=== PATIENT | male | born 1940 | race Caucasian/White ===

== ENCOUNTER 2017-06-09 09:39 | Inpatient (IN) | payer MEDICARE ==
[2017-06-09 11:10] LABS: Hematocrit 43.3 % (35.5-45.6); Hemoglobin 14.6 gm/dl (11.8-15.2); Mean Corpuscular HGB Conc 34 % (32-34); Mean Corpuscular Hemoglobin 31 pg (28-32); Mean Corpuscular Volume 91 fl (84-94); Platelet Count 123 K/mm3 (140-440); Red Blood Count 4.76 M/mm3 (3.65-5.03); Red Cell Distribution Width 13.8 % (13.2-15.2)
--- NOTE | 2017-06-09 11:17 | Cat Scan Report ---
CT HEAD WITHOUT CONTRAST: 06/09/17 09:39:00 CLINICAL: Stroke. TECHNIQUE: 2.5-mm noncontrast scans. COMPARISON:04/18/11 FINDINGS: The ventricles and sulci are large for age. Large areas of encephalomalacia in the left occipital lobe, right temporal lobe and posterior right parietal lobe. Left basal ganglia chronic lacunar infarcts. Left occipital lobe encephalomalacia is unchanged compared to the prior exam. Chronic infarcts of the left basal ganglia and right temporal lobe and right posterior parietal lobe are new compared to the last exam. Bilateral periventricular white matter hypodensities are more pronounced than on the prior exam. No suspicious focal hypodensity. No mass or mass effect. No hemorrhage, edema or extra-axial collection. Bilateral ethmoid and maxillary sinusitis with air-fluid levels in the maxillary sinuses. Normal orbits and soft tissues. The calvarium and skull base are intact. IMPRESSION: 1. No evidence of acute/subacute infarct or hemorrhage. 2. Chronic infarcts of the right temporal lobe, right posterior parietal lobe and left basal ganglia are new compared to the previous exam. 3. Stable chronic left occipital lobe infarct. 4. Chronic white matter microangiopathy. 5. Bilateral ethmoid and maxillary sinusitis..
[2017-06-09 11:20] LABS: INR 2.41 (0.87-1.13)
[2017-06-09 11:26] LABS: BUN/Creatinine Ratio 16; Blood Urea Nitrogen 22 mg/dL (9-20); Calcium 8.5 mg/dL (8.4-10.2); Hemolysis Index 6
[2017-06-09 11:27] LABS: Partial Thromboplastin Time 61.8 Sec. (24.2-36.6)
--- NOTE | 2017-06-09 11:32 | XRay Report ---
AP CHEST : 06/09/17 09:39:00 CLINICAL: Syncope. COMPARISON:04/18/11 FINDINGS: Normal heart and pulmonary vessels.Aortic calcification and tortuosity. The lungs are normally expanded and clear. The bones and soft tissues are unremarkable. IMPRESSION: No acute cardiopulmonary process.
--- NOTE | 2017-06-09 11:58 | Emergency Department Report ---
ED Syncope HPI - General Chief Complaint: Syncope Stated Complaint: PASS OUT Time Seen by Provider: 06/09/17 10:59 Source: patient Exam Limitations: no limitations - History of Present Illness Initial Comments: 76-year-old male with a past medical history CVA and chronic atrial fibrillation presents also complains of near syncopal episode today and syncopal episode yesterday. Patient was in sikhism today, tried to stand but was too weak to do so and became pale and weak. Patient obtain a shortness of breath just during that episode but otherwise denies shortness of breath, headache, chest pain, bowel pain, nausea, vomiting, diarrhea, melena, or hematochezia. Positive intermittent cough but denies any fevers. 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 - Related Data Allergies/Adverse Reactions: Allergies No Known Allergies Allergy (Verified 06/09/17 10:23) ED Review of Systems ROS: Stated complaint: PASS OUT Other details as noted in HPI Comment: All other systems reviewed and negative Other: Constitutional: No fevers chills Eyes: No eye pain visual changes ENT: No ear pain or throat pain Neck: Denies pain Respiratory: As per HPI Cardiovascular: Denies chest pain, palpitations GI: Denies abdominal pain, nausea, vomiting, diarrhea : Denies dysuria Musculoskeletal: Denies back pain Skin: Denies rash, lesions, erythema Neurologic: Denies headache, numbness, focal weakness Psychiatric: Denies suicidal ideation, hallucinations ED Past Medical Hx - Past Medical History Previous Medical History?: Yes Hx CVA: Yes (2stroke episodes,one 2 years ago,one 6 years ago; one eye stroke) Additional medical history: Hx A-fib. - Surgical History Past Surgical History?: No - Social History Smoking Status: Never Smoker Substance Use Type: None ED Physical Exam - General Limitations: No Limitations - Other Other exam information: General: No limitations, patient is alert in no acute distress Head exam: Atraumatic, normocephalic Eyes exam: Normal appearance ENT: Moist mucous membrane, normal oropharynx Neck exam: Normal inspection, full range of motion, no meningismus nontender Respiratory exam: Clear to auscultation bilateral, no wheezes, rales, crackles Cardiovascular: Normal rate and rhythm, normal heart sounds Abdomen: Soft, nondistended, and nontender, with normal bowel sounds, no rebound, or guarding Extremity: Full range of motion normal inspection no deformity Back: Normal Inspection, full range of motion, no tenderness Neurologic: Alert, oriented x3, cranial nerves intact, no motor or sensory deficit Psychiatric: normal affect, normal mood Skin: Warm, dry, intact ED Course Vital Signs 06/09/17 06/09/17 06/09/17 10:02 10:07 10:15 Temperature 98.8 F Pulse Rate 99 H 116 H Respiratory 13 14 15 Rate Blood Pressure 115/72 122/78 Blood Pressure 115/72 [Left] O2 Sat by Pulse 99 97 97 Oximetry 06/09/17 06/09/17 10:30 10:45 Temperature Pulse Rate 94 H 92 H Respiratory 15 13 Rate Blood Pressure 131/85 138/98 Blood Pressure [Left] O2 Sat by Pulse 99 98 Oximetry - Reevaluation(s) Reevaluation #1: 06/09/17 12:07 Patient remains asymptomatic in ED ED Medical Decision Making - Lab Data Result diagrams: 06/09/17 10:38 06/09/17 10:38 Lab Results 06/09/17 06/09/17 06/09/17 Range/Units 10:38 10:38 10:38 WBC 3.8 L (4.5-11.0) K/mm3 RBC 4.76 (3.65-5.03) M/mm3 Hgb 14.6 (11.8-15.2) gm/dl Hct 43.3 (35.5-45.6) % MCV 91 (84-94) fl MCH 31 (28-32) pg MCHC 34 (32-34) % RDW 13.8 (13.2-15.2) % Plt Count 123 L (140-440) K/mm3 [place] % (Auto) Supervisor Advice Add Manual Diff Complete Total Counted 100 Seg Neuts % (Manual) 67.0 (40.0-70.0) % Band Neutrophils % 5.0 % Lymphocytes % (Manual) 17.0 (13.4-35.0) % Reactive Lymphs % (Man) 0 % Monocytes % (Manual) 11.0 H (0.0-7.3) % Eosinophils % (Manual) 0 (0.0-4.3) % Basophils % (Manual) 0 (0.0-1.8) % Metamyelocytes % 0 % Myelocytes % 0 % Promyelocytes % 0 % Blast Cells % 0 % Nucleated RBC % Not Reportable Seg Neutrophils # Man 2.5 (1.8-7.7) K/mm3 Band Neutrophils # 0.2 K/mm3 Lymphocytes # (Manual) 0.6 L (1.2-5.4) K/mm3 Abs React Lymphs (Man) 0.0 K/mm3 Monocytes # (Manual) 0.4 (0.0-0.8) K/mm3 Eosinophils # (Manual) 0.0 (0.0-0.4) K/mm3 Basophils # (Manual) 0.0 (0.0-0.1) K/mm3 Metamyelocytes # 0.0 K/mm3 Myelocytes # 0.0 K/mm3 Promyelocytes # 0.0 K/mm3 Blast Cells # 0.0 K/mm3 WBC Morphology Not Reportable Hypersegmented Neuts Not Reportable Hyposegmented Neuts Not Reportable Hypogranular Neuts Not Reportable Smudge Cells Not Reportable Toxic Granulation Not Reportable Toxic Vacuolation Not Reportable Dohle Bodies Not Reportable Pelger-Huet Anomaly Not Reportable Richard Rods Not Reportable Platelet Estimate Consistent w auto Clumped Platelets Not Reportable Plt Clumps, EDTA Not Reportable Large Platelets Not Reportable Giant Platelets Not Reportable Platelet Satelliting Not Reportable Plt Morphology Comment Not Reportable RBC Morphology Normal Dimorphic RBCs Not Reportable Polychromasia Not Reportable Hypochromasia Not Reportable Poikilocytosis Not Reportable Anisocytosis Not Reportable Microcytosis Not Reportable Macrocytosis Not Reportable Spherocytes Not Reportable Pappenheimer Bodies Not Reportable Sickle Cells Not Reportable Target Cells Not Reportable Tear Drop Cells Not Reportable Ovalocytes Not Reportable Helmet Cells Not Reportable [place] Bodies Not Reportable [place] Rings Not Reportable [place] Cells Not Reportable Bite Cells Not Reportable Crenated Cell Not Reportable Elliptocytes Not Reportable Acanthocytes (Spur) Not Reportable Rouleaux Not Reportable Hemoglobin C Crystals Not Reportable Schistocytes Not Reportable Malaria parasites Not Reportable Obed Bodies Not Reportable Hem Pathologist Commnt No PT 27.7 H (12.2-14.9) Sec. INR 2.41 H (0.87-1.13) APTT 61.8 H* (24.2-36.6) Sec. Thrombin Time (15.1-19.6) Sec. Sodium 138 (137-145) mmol/L Potassium 4.4 (3.6-5.0) mmol/L Chloride 98.2 (98-107) mmol/L Carbon Dioxide 26 (22-30) mmol/L Anion Gap 18 mmol/L BUN 22 H (9-20) mg/dL Creatinine 1.4 (0.8-1.5) mg/dL Estimated GFR 50 ml/min BUN/Creatinine Ratio 16 % Glucose 106 H (75-100) mg/dL Calcium 8.5 (8.4-10.2) mg/dL Troponin T < 0.010 (0.00-0.029) ng/mL 06/09/17 Range/Units 10:38 WBC (4.5-11.0) K/mm3 RBC (3.65-5.03) M/mm3 Hgb (11.8-15.2) gm/dl Hct (35.5-45.6) % MCV (84-94) fl MCH (28-32) pg MCHC (32-34) % RDW (13.2-15.2) % Plt Count (140-440) K/mm3 [place] % (Auto) Add Manual Diff Total Counted Seg Neuts % (Manual) (40.0-70.0) % Band Neutrophils % % Lymphocytes % (Manual) (13.4-35.0) % Reactive Lymphs % (Man) % Monocytes % (Manual) (0.0-7.3) % Eosinophils % (Manual) (0.0-4.3) % Basophils % (Manual) (0.0-1.8) % Metamyelocytes % % Myelocytes % % Promyelocytes % % Blast Cells % % Nucleated RBC % Seg Neutrophils # Man (1.8-7.7) K/mm3 Band Neutrophils # K/mm3 Lymphocytes # (Manual) (1.2-5.4) K/mm3 Abs React Lymphs (Man) K/mm3 Monocytes # (Manual) (0.0-0.8) K/mm3 Eosinophils # (Manual) (0.0-0.4) K/mm3 Basophils # (Manual) (0.0-0.1) K/mm3 Metamyelocytes # K/mm3 Myelocytes # K/mm3 Promyelocytes # K/mm3 Blast Cells # K/mm3 WBC Morphology Hypersegmented Neuts Hyposegmented Neuts Hypogranular Neuts Smudge Cells Toxic Granulation Toxic Vacuolation Dohle Bodies Pelger-Huet Anomaly Richard Rods Platelet Estimate Clumped Platelets Plt Clumps, EDTA Large Platelets Giant Platelets Platelet Satelliting Plt Morphology Comment RBC Morphology Dimorphic RBCs Polychromasia Hypochromasia Poikilocytosis Anisocytosis Microcytosis Macrocytosis Spherocytes Pappenheimer Bodies Sickle Cells Target Cells Tear Drop Cells Ovalocytes Helmet Cells [place] Bodies [place] Rings [place] Cells Bite Cells Crenated Cell Elliptocytes Acanthocytes (Spur) Rouleaux Hemoglobin C Crystals Schistocytes Malaria parasites Obed Bodies Hem Pathologist Commnt PT (12.2-14.9) Sec. INR (0.87-1.13) APTT (24.2-36.6) Sec. Thrombin Time 16.9 (15.1-19.6) Sec. Sodium (137-145) mmol/L Potassium (3.6-5.0) mmol/L Chloride (98-107) mmol/L Carbon Dioxide (22-30) mmol/L Anion Gap mmol/L BUN (9-20) mg/dL Creatinine (0.8-1.5) mg/dL Estimated GFR ml/min BUN/Creatinine Ratio % Glucose (75-100) mg/dL Calcium (8.4-10.2) mg/dL Troponin T (0.00-0.029) ng/mL - EKG Data -: EKG Interpreted by Me (afib) EKG shows normal: axis (52), QRS complexes (83), ST-T waves (no stemi/ t inv) Rate: normal (94) - EKG Data When compared to previous EKG there are: previous EKG unavailable - Radiology Data Radiology results: report reviewed Chest x-ray: No acute findings CT head: No acute or subacute infarcts or hemorrhage. See report for chronic infarct findings and bilateral ethmoid and maxillary sinusiti - Medical Decision Making Syncope Labs and imaging studies unremarkable. Pt istherapeutic on Coumadin Chronic A. fib noted Patient be made to the hospital further evaluation - Differential Diagnosis CVA, arrhythmia, anemia, vasovagal, dehydration, [place] Critical Care Time: No Critical care attestation.: If time is entered above; I have spent that time in minutes in the direct care of this critically ill patient, excluding procedure time. ED Disposition Clinical Impression: Syncope, Chronic a-fib, Anticoagulated on Coumadin, Thrombocytopenia, Sinusitis Disposition: OP ADMIT IP TO THIS HOSP Is pt being admited?: Yes Condition: Stable Time of Disposition: 11:58 (Dr Oakes/hosp)
[2017-06-09 11:59] LABS: Band Neutrophils # (Manual) 0.2 K/mm3; Basophils % (Manual) 0 % (0.0-1.8); Eosinophils % (Manual) 0 % (0.0-4.3); Platelet Estimate Consistent w Auto; RBC Morphology Normal; Total Cells Counted 100
[2017-06-09 12:30] LABS: Creatine Kinase MB 1.2 ng/mL (0.0-4.0)
[2017-06-09 13:14] LABS: Bacteria,Urine 1+ /HPF (Negative); Bilirubin,Urine NEG (Negative); Blood,Urine NEG (Negative); Color,Urine Yellow (Yellow); Hyaline Casts,Urine 31 /LPF; Mucus,Urine 1+ /HPF; Nitrite,Urine NEG (Negative); Urobilinogen,Urine < 2.0 mg/dL (<2.0)
--- NOTE | 2017-06-10 06:22 | Event Note ---
Date: 06/09/17 See dictated H/p in reports Syncope and Collapse CVA in past
[2017-06-10] MEDS ORDERED: TYLENOL PO PRN (06:29)
[2017-06-10] MEDS ORDERED: DULCOLAX PR PRN (06:29)
[2017-06-10] MEDS ORDERED: ZOFRAN IV PRN (06:29)
[2017-06-10] MEDS ORDERED: PERCOCET 5/325 PO PRN (06:29)
[2017-06-10] MEDS ORDERED: MILK OF MAGNESIA PO PRN (06:29)
[2017-06-10] MEDS ORDERED: MORPHINE IV PRN (06:29)
[2017-06-10] MEDS ORDERED: D5NS 1,000 ML IV SCH (07:00)
--- NOTE | 2017-06-10 07:26 | History and Physical Report ---
CHIEF COMPLAINT: Passed out last night. HISTORY OF PRESENT ILLNESS: A 76-year-old male with history of CVA and chronic atrial fibrillation, comes in for syncope yesterday. The patient was having chest tightness and felt weak and became pale and passed out. Shortness of breath during the episode. The headache and chest, but denies any chest pain, headache, nausea, or vomiting. Some cough present. Because the patient did not want to come yesterday, he came this morning for checkup. The patient is otherwise doing well. No fever, no chills. No recent travel. PAST MEDICAL HISTORY: Significant for history of CVA and atrial fibrillation. PAST SURGICAL HISTORY: None. SOCIAL HISTORY: Does not smoke. No alcohol, no recreational drugs. FAMILY HISTORY: No hypertension, no diabetes. REVIEW OF SYSTEMS: Significant for syncope. Otherwise, 14-point review of systems negative. A 14-point review of systems done. PHYSICAL EXAMINATION: GENERAL: Elderly male, lying in bed comfortably. VITAL SIGNS: Blood pressure is 150/83 and 148/89. Not orthostatic. Temperature is 98.8, pulse is 80, respirations 18. HEENT: Unremarkable. Pupils are equal and reactive. NECK: Supple, no lymphadenopathy, no thyromegaly. LUNGS: Clear to auscultation and percussion. Good air entry. CARDIOVASCULAR: S1, S2 heard. No gallop, no murmur, no rub. Apical impulse in the left fifth intercostal space and midclavicular line. ABDOMEN: Soft and benign. No hepatosplenomegaly. No guarding, no rigidity. Hernial orifices are normal. EXTREMITIES: Good pedal pulses. No pedal edema. LABORATORY DATA: Significant for white count of 3800, hemoglobin of 14.6 and hematocrit of 43.3, platelet count of 123,000. Electrolytes are normal. BUN is 22, creatinine is 1.4, slightly high. Urine is negative. Sodium is 138, potassium is 4.4. DIAGNOSTIC DATA: EKG shows nonspecific ST-T wave changes. Normal QRS complexes. Heart rate of 94. CT head, no acute findings. Chest x-ray, no acute findings. ASSESSMENT AND PLAN: 1. Syncope. Syncope workup. 2. Chronic atrial fibrillation. The patient on Coumadin. Syncope workup: The patient to get carotid duplex scan, Lexiscan scan and echocardiogram. If Lexiscan is negative, the patient will be discharged on 06/10/2017. Deep venous thrombosis prophylaxis, the patient on Coumadin. JOB# [id number] LAVERN/JESSIE
[2017-06-10 07:31] LABS: Hematocrit 40.4 % (35.5-45.6); Hemoglobin 13.6 gm/dl (11.8-15.2); Mean Corpuscular HGB Conc 34 % (32-34); Mean Corpuscular Hemoglobin 30 pg (28-32); Mean Corpuscular Volume 90 fl (84-94); Platelet Count 119 K/mm3 (140-440); Red Blood Count 4.49 M/mm3 (3.65-5.03)
[2017-06-10 07:51] LABS: Alanine Aminotransferase 14 units/L (7-56); Albumin 3.5 g/dL (3.9-5); BUN/Creatinine Ratio 16; Blood Urea Nitrogen 16 mg/dL (9-20); Calcium 8.3 mg/dL (8.4-10.2); Hemolysis Index 18
[2017-06-10 08:39] LABS: Anisocytosis 1+; Band Neutrophils # (Manual) 0.1 K/mm3; Ovalocytes 1+; Total Cells Counted 100
[2017-06-10] MEDS ORDERED: LEXISCAN IV ONE ×2 (09:20→09:22)
[2017-06-10] MEDS ORDERED: PEPCID PO SCH (10:00)
--- NOTE | 2017-06-10 14:59 | Discharge Summary ---
Providers - Providers Date of Admission: 06/09/17 11:58 Attending physician: LINO JOHNSON MD Primary care physician: SARAH VITALE Hospitalization Condition: Stable Hospital course: 76-year-old male with a past medical history CVA and chronic atrial fibrillation presents also complains of near syncopal episode today and syncopal episode yesterday. Patient was in mandaen today, tried to stand but was too weak to do so and became pale and weak. Patient obtain a shortness of breath just during that episode but otherwise denies shortness of breath, headache, chest pain, bowel pain, nausea, vomiting, diarrhea, melena, or hematochezia. Positive intermittent cough but denies any fevers. 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 Afib with hypercoaguable state Transient Autonomic Imbalance Syncope Disposition: DC-01 TO HOME OR SELFCARE Time spent for discharge: 33 minutes Core Measure Documentation - Palliative Care Palliative Care/ Comfort Measures: Not Applicable - Core Measures Any of the following diagnoses?: none Exam - Constitutional Vitals: Temp Pulse Resp BP Pulse Ox 97.3 F L 94 H 20 139/89 97 06/10/17 13:14 06/10/17 13:14 06/10/17 13:14 06/10/17 13:14 06/10/17 13:14 General appearance: Present: no acute distress, well-nourished - EENT Eyes: Present: PERRL ENT: hearing intact, clear oral mucosa - Neck Neck: Present: supple, normal ROM - Respiratory Respiratory effort: normal Respiratory: bilateral: CTA - Cardiovascular Heart Sounds: Present: S1 & S2. Absent: rub, click - Extremities Extremities: pulses symmetrical, No edema Peripheral Pulses: within normal limits - Abdominal General gastrointestinal: Present: soft, non-tender, non-distended, normal bowel sounds Male genitourinary: Present: normal - Integumentary Integumentary: Present: clear, warm, dry - Musculoskeletal Musculoskeletal: gait normal, strength equal bilaterally - Psychiatric Psychiatric: appropriate mood/affect, intact judgment & insight - Neurologic Neurologic: CNII-XII intact, moves all extremities Plan Follow up with: SARAH VITALE MD [Primary Care Provider] - 7 Days Forms: Warfarin Discharge Instruction
[2017-06-10] MEDS ORDERED: COUMADIN PO SCH (17:00)
--- NOTE | 2017-06-11 01:19 | Treadmill Report ---
NUCLEAR CARDIAC STRESS TEST INDICATION FOR PROCEDURE: Syncope. Informed consent was obtained. DESCRIPTION OF PROCEDURE: Lexiscan vasodilator stress testing was performed per standard protocol with nuclear cardiac imaging utilizing 10 mCi of technetium 99m Myoview for the resting acquisition and 28 mCi of technetium 99m Myoview for the stress acquisition. Images were obtained per protocol. Gated SPECT imaging demonstrates a post-stress left ventricular ejection fraction of 63% with normal wall motion. Myocardial perfusion imaging demonstrates no significant cavity change between stress and rest. No significant stress-induced perfusion defects were seen. Nuclear cardiac imaging demonstrates grossly normal post-stress left ventricular systolic function with no significant evidence for myocardial ischemia or necrosis. JOB# [id number] ROLAND/JESSIE
[2017-06-11 10:25] VITALS: BP 158/73
== END 2017-06-10 17:15 | disposition home or self-care (01) | DRG 74 ==
LOC: ED 09:39 → 4A 11:58
PROVIDERS: ADMIT Internal Medicine; ATTEND Internal Medicine
DX: G90.8 Other disorders of autonomic nervous system (principal); D68.59 Other primary thrombophilia; R55 Syncope and collapse; I48.2 Chronic atrial fibrillation; D69.6 Thrombocytopenia, unspecified; J32.9 Chronic sinusitis, unspecified; Z79.01 Long term (current) use of anticoagulants; Z86.73 Personal history of transient ischemic attack (TIA), and cerebral infarction without residual deficits
CPT/HCPCS: 36415; 70450; 71045; 78452; 80048; 80053; 81001; 82550; 82553; 82962; 84484; 85007; 85025; 85610; 85670; 85730; 93005; 93010; 93017; 93306; 93880; 94760; A9502; J2785